=== PATIENT | male | born 1995 | race Caucasian/White ===

== ENCOUNTER 2020-04-14 22:16 | Emergency (ER) | payer OTHER ==
[~2020-04-14] VITALS: Ht 175.3 cm; Wt 94.8 kg
[2020-04-14] MEDS ORDERED: BOOSTRIX/ADACEL VACCINE (DIPHTH/PERTUSS/ACELL/TETANUS) 0.5ML SYR IM ONE (22:30)
[2020-04-14] MEDS ORDERED: LIDOCAINE 2% MDV 20ML VIAL SC ONE (23:15)
[2020-04-14] MEDS ORDERED: KEFL500C17 PO (23:55)
[2020-04-15] MEDS ORDERED: KEFL500C17 PO (00:04)
[2020-04-15 00:07] VITALS: BP 133/71
--- NOTE | 2020-04-15 01:24 | REP ---
Clinical: Trauma. Technique: AP, lateral, bilateral oblique views left hand Findings: The osseous structures and joint spaces are intact and normal. There is no evidence for acute fracture or dislocation. Surrounding soft tissues are unremarkable. No subcutaneous emphysema or radiodense foreign body. Impression: Normal left hand series . No acute fracture or dislocation. Electronically Signed by Alfredo Schmitt MD 04/15/2020 01:16 A
== END 2020-04-15 00:08 | disposition home or self-care (01) ==
LOC: M ED 22:16
DX: S61.012A Laceration without foreign body of left thumb without damage to nail, initial encounter (principal); S61.213A Laceration without foreign body of left middle finger without damage to nail, initial encounter; W26.0XXA Contact with knife, initial encounter; Y99.8 Other external cause status

== ENCOUNTER 2020-12-31 12:07 | Emergency (ER) | payer OTHER ==
[~2020-12-31] VITALS: Ht 175.3 cm; Wt 98.7 kg
[~2020-12-31 12:07] MED LIST: KEFL500C17 PO
--- OUTSIDE RECORDS SUMMARY | 2020-12-31 12:13 | CCD ---
Author Author [facility] Organization [facility] Address Unknown Phone Unavailable Support Name Relationship Address Phone [facility] Next [place] [address] Unavailable SANTOS FRANZ Next Of [place] [id number] [place] [address] Re-disclosure Warning The records that you are about to access may contain information from federally-assisted alcohol or drug abuse programs. If such information is present, then the following federally mandated warning applies: This information has been disclosed to you from records protected by federal confidentiality rules (42 CFR part 2). The federal rules prohibit you from making any further disclosure of this information unless further disclosure is expressly permitted by the written consent of the person to whom it pertains or as otherwise permitted by 42 CFR part 2. A general authorization for the release of medical or other information is NOT sufficient for this purpose. The Federal rules restrict any use of the information to criminally investigate or prosecute any alcohol or drug abuse patient.The records that you are about to access may contain highly sensitive health information, the redisclosure of which is protected by Article 27-F of the [facility] Public Health law. If you continue you may have access to information: Regarding HIV / AIDS; Provided by facilities licensed or operated by the [facility] Office of Mental Health; or Provided by the [facility] Office for People With Developmental Disabilities. If such information is present, then the following [facility] mandated warning applies: This information has been disclosed to you from confidential records which are protected by state law. State law prohibits you from making any further disclosure of this information without the specific written consent of the person to whom it pertains, or as otherwise permitted by law. Any unauthorized further disclosure in violation of state law may result in a fine or penitentiary sentence or both. A general authorization for the release of medical or other information is NOT sufficient authorization for further disc losure. Insurance Providers Payer name Policy type / Coverage type Policy ID Covered alliance party ID Covered alliance party's relationship to welsh Policy Welsh Plan Information [facility] ACTIVE DUTY [id number]
--- NOTE | 2020-12-31 12:54 | REP ---
INDICATION: pain. COMPARISON: None. TECHNIQUE: Five views FINDINGS: Medial and lateral compartments show no joint space narrowing, loose body or osteochondral defect. ICD 6 no significant spurs. Slight widening of the patellofemoral joint space on the sunrise view raises question of a small suprapatellar effusion. It is difficult to confirm on the lateral projection. There is no fracture, avulsion, osteochondral defect or focal bone lesion. IMPRESSION: 1. Question of a suprapatellar joint effusion but no visible or displaced fracture, avulsion, loose body or osteochondral defect. <Electronically signed by Gregg Roach > 12/31/20 [id number]
--- OUTSIDE RECORDS SUMMARY | 2020-12-31 12:55 | CCD ---
Author Author [facility] Address Unknown Phone Unavailable Support Name Relationship Address Phone [facility] Next Of Kin [address] [place] [address] Unavailable SANTOS FRANZ Next Of Kin [id number] [place] [address] Re-disclosure Warning The records that you are [...] is protected by Article 27-F of the [facility] Public Health law. If you continue you may have access to information: Regarding HIV / AIDS; Provided by facilities licensed or operated by the [facility] Office of Mental Health; or Provided by the [facility] Office for People With Developmental Disabilities. If such information is present, then the following [facility] mandated warning applies: This information has [...] law may result in a fine or group home sentence or both. A general authorization for the release of medical or other information is NOT sufficient authorization for further disc losure. Insurance Providers Payer name Policy type / Coverage type Policy ID Covered libertarian ID Covered libertarian's relationship to welsh Policy Welsh Plan Information [facility] ACTIVE DUTY [id number]
[2020-12-31 13:25] VITALS: BP 141/77
== END 2020-12-31 13:31 | disposition home or self-care (01) ==
LOC: M ED 12:07
DX: M25.461 Effusion, right knee (principal); Z88.0 Allergy status to penicillin; F17.210 Nicotine dependence, cigarettes, uncomplicated